=== PATIENT | male | born 2000 | race Caucasian/White ===

== ENCOUNTER → 2021-01-03 | Outpatient (CLI) | payer OTHER ==
--- NOTE | 2021-01-03 16:13 | REP ---
INDICATION: PAIN. COMPARISON: None. TECHNIQUE: AP and lateral views FINDINGS: There is no acute fracture or destructive osseous lesion. IMPRESSION: No acute osseous abnormality. <Electronically signed by Rk Haines > 01/03/21 [id number]
== END ==
LOC: M WUC 13:55
PROVIDERS: ATTEND Physician Assistant
DX: M79.662 Pain in left lower leg (principal)